=== PATIENT | male | born 2000 | race Hispanic/Latino ===

== ENCOUNTER 2022-04-23 00:40 | Inpatient (IN) | payer SELFPAY ==
[2022-04-23] MEDS ORDERED: Ondansetron ODT 4 MG TAB ONE (02:09)
[2022-04-23] MEDS ORDERED: Ondansetron PF 4 MG/2 ML Vial ONE (02:37)
[2022-04-23 02:59] LABS: #Lymphocytes 2.1 thou/uL (1.20-3.40); #Monocytes 0.9 thou/uL (0.11-0.59); #Neutrophils 7.4 thou/uL (1.40-6.50); %Basophils 0.3 % (0.0-1.0); %Eosinophils 0.1 % (0.0-10.0); %Monocytes 8.5 % (0.0-10.0); %Neutrophils 71.1 % (42.0-75.0); Hemoglobin 18.8 g/dL (14.0-18.0); Mean Corpuscular HGB CONC 35.5 g/dL (32.0-36.0); Mean Corpuscular Hemoglobin 30.9 pg (27.0-31.0); Mean Corpuscular Volume 86.9 fL (78.0-98.0); Mean Platelet Volume 13.8 fL (7.4-10.4); Platelet Count 222 thou/uL (130-400); Red Blood Cell (RBC) Count 6.09 mill/uL (4.70-6.10); White Blood Cell (WBC) Count 10.4 thou/uL (4.8-10.8)
[2022-04-23 03:21] LABS: Large Platelets MODERATE; MDiff Complete? YES; Platelet Morphology Comment Appears Adequate; RBC Morphology Normal
[2022-04-23 03:29] LABS: ALT (SGPT) 160 U/L (8-55)
[2022-04-23 03:38] LABS: Lipase 1936 U/L (8-78)
[2022-04-23] MEDS ORDERED: Haloperidol Lactate 5 MG/ML VIAL ONE (03:51)
[2022-04-23 04:22] LABS: Analyzer IN Cardio ER; Base Excess -9.8 mEq/L (-2.0 to +3.0); Calcium, Ionized (venous) 0.85 mmol/L (1.16-1.32); Chloride (VBG) 97 mmol/L (98-106); Hemoglobin (Hb) 18.7 g/dL (13.2-17.3); Sodium 130.5 mmol/L (133-146); pH (venous) 7.36 (7.32-7.43)
[2022-04-23 04:23] LABS: AST (SGOT) 95 U/L (5-34)
[2022-04-23 04:26] LABS: Actual Bicarbonate (HCO3v) 14 mEq/L (22-28)
[2022-04-23 04:36] LABS: Albumin 4.3 g/dL (3.5-5.0); Alkaline Phosphatase 85 U/L (40-110); BUN (Urea Nitrogen) 16 mg/dL (8.9-20.6); Bilirubin, Total 0.8 mg/dL (0.2-1.2); Calc. Creatinine Clearance 0 mL/min (70-130); Calcium 7.6 mg/dL (7.8-10.44); Estimated GFR 38; Globulin 7.1 g/dL (2.4-3.5); Protein, Total 11.4 g/dL (6.0-8.3)
[2022-04-23 04:39] LABS: Potassium 5.4 mmol/L (3.5-5.1); Sodium 124 mmol/L (136-145)
[2022-04-23 04:40] LABS: Carbon Dioxide 15 mmol/L (22-29)
[2022-04-23 04:41] LABS: Chloride 91 mmol/L (98-107)
[2022-04-23 04:45] LABS: Glucose 635 mg/dL (70-105)
[2022-04-23 04:54] LABS: Triglycerides 1691 mg/dL (Less than 150)
[2022-04-23 04:59] LABS: Anion Gap 23 mmol/L (10-20)
[2022-04-23] MEDS ORDERED: INSULIN REGULAR IN 0.9 % NACL 100 UNIT/100 ML BAG ONE (05:02)
[2022-04-23] MEDS ORDERED: Sodium Chloride 0.9% 1,000 ML IV PRN ×4 (05:36)
[2022-04-23] MEDS ORDERED: Electrolyte Replacement Protocol 1 EACH IVPB SCH (05:36)
[2022-04-23] MEDS ORDERED: NS 0.9% w/ 20 MEQ KCL 1,000 ML IV PRN ×2 (05:36)
[2022-04-23] MEDS ORDERED: Dextrose 5 %-0.45 % NaCl 1,000 ML IV PRN (05:36)
[2022-04-23] MEDS ORDERED: Acetaminophen 650 MG Suppository PR PRN (05:36)
[2022-04-23] MEDS ORDERED: Ondansetron PF 4 MG/2 ML Vial IVP PRN (05:36)
[2022-04-23] MEDS ORDERED: Ondansetron ODT 4 MG TAB PO PRN (05:36)
[2022-04-23 06:29] LABS: Hemoglobin A1c 10.5 % (4.0-6.0)
[2022-04-23] MEDS ORDERED: Morphine 4 MG/ML VIAL SLOW IVP PRN (06:37)
[2022-04-23 06:47] LABS: Magnesium 1.5 mg/dL (1.6-2.6); Phosphorus 2.7 mg/dL (2.3-4.7)
[2022-04-23 07:19] LABS: Anion Gap 21 mmol/L (10-20); BUN (Urea Nitrogen) 16 mg/dL (8.9-20.6); Calc. Creatinine Clearance 0 mL/min (70-130); Carbon Dioxide 14 mmol/L (22-29); Chloride 100 mmol/L (98-107); Estimated GFR 65; Glucose 464 mg/dL (70-105); Potassium 5.3 mmol/L (3.5-5.1); Sodium 130 mmol/L (136-145)
[2022-04-23] MEDS ORDERED: Magnesium 2 GM/50 ML(in water) 2 GM in Premix Bag 1 BAG IVPB SCH (08:00)
[2022-04-23 08:49] LABS: SARS-CoV-2 NAA Rapid Test Not Detected (NotDetected)
[2022-04-23 08:53] LABS: Bacteria/HPF None Seen HPF (None Seen); Bilirubin Negative (Negative); Blood, Urine 1+ (Negative); Clarity Clear (Clear); Glucose, Urine (Dipstick) Greater than 1000 mg/dL (Negative); Ketone, Urine 20 mg/dL (Negative); Leukocyte Negative Leu/uL (Negative); Nitrite Negative (Negative); Protein, Urine (Dipstick) 20 mg/dL (Neg-Trace); RBC/HPF None Seen HPF (0-3); Specific Gravity, Urine 1.034 (1.002-1.036); Squamous Epithelial None Seen HPF (0-3); Urobilinogen Normal mg/dL (Less than 2); WBC/HPF None Seen HPF (0-3); pH, Urine 5.5 (5.0-9.0)
[2022-04-23 09:18] LABS: Hemoglobin 17.3 g/dL (14.0-18.0); Mean Corpuscular HGB CONC 35.2 g/dL (32.0-36.0); Mean Corpuscular Hemoglobin 30.4 pg (27.0-31.0); Mean Corpuscular Volume 86.6 fL (78.0-98.0); Mean Platelet Volume 12.7 fL (7.4-10.4); Platelet Count 150 thou/uL (130-400); RBC Distribution Width 12.7 % (11.5-14.5); Red Blood Cell (RBC) Count 5.67 mill/uL (4.70-6.10); White Blood Cell (WBC) Count 7.3 thou/uL (4.8-10.8)
[2022-04-23] MEDS ORDERED: Magnesium 2 GM/50 ML BAG (IN WATER) ONE (09:18)
[2022-04-23 09:34] LABS: Band 45 % (5-11); Lymphocytes 15 % (21-51); MDiff Complete? YES; Metamyelocyte 2 % (0-0); Monocytes 5 % (0-10); Neutrophil 32 % (42-75); Platelet Morphology Comment Appears Adequate; Polychromasia SLIGHT = 2-3 cells (100X) (0-2/hpf); Reactive Lymphocytes 1 % (0-10); Vacuoles SLIGHT
[2022-04-23 10:00] LABS: Anion Gap 27 mmol/L (10-20); BUN (Urea Nitrogen) 15 mg/dL (8.9-20.6); Calc. Creatinine Clearance 0 mL/min (70-130); Carbon Dioxide 8 mmol/L (22-29); Chloride 105 mmol/L (98-107); Potassium 5.2 mmol/L (3.5-5.1); Sodium 135 mmol/L (136-145)
[2022-04-23 10:01] LABS: ALT (SGPT) 133 U/L (8-55); AST (SGOT) 65 U/L (5-34); Albumin 3.7 g/dL (3.5-5.0); Alkaline Phosphatase 64 U/L (40-110); Bilirubin, Total 0.7 mg/dL (0.2-1.2); Estimated GFR 72; Globulin 4.8 g/dL (2.4-3.5); Glucose 402 mg/dL (70-105); Protein, Total 8.5 g/dL (6.0-8.3)
[2022-04-23 12:43] LABS: Glucose 344 mg/dL (70-105)
[2022-04-23 14:36] LABS: Anion Gap 25 mmol/L (10-20); BUN (Urea Nitrogen) 15 mg/dL (8.9-20.6); Calc. Creatinine Clearance 0 mL/min (70-130); Calcium 7.1 mg/dL (7.8-10.44); Carbon Dioxide 8 mmol/L (22-29); Chloride 104 mmol/L (98-107); Estimated GFR 87; Glucose 354 mg/dL (70-105); Potassium 4.7 mmol/L (3.5-5.1); Sodium 132 mmol/L (136-145)
[2022-04-23] MEDS ORDERED: Sodium Bicarbonate 50 MEQ in Sodium Chloride 0.45% 1,000 ML IV SCH (15:45)
[2022-04-23] MEDS ORDERED: NIFEdipine XL 60 MG TAB PO SCH (16:15)
[2022-04-23 16:44] LABS: Glucose 314 mg/dL (70-105)
[2022-04-23 17:27] VITALS: BMI 34.9
[2022-04-23 17:27] LABS: Magnesium 2.1 mg/dL (1.6-2.6); Phosphorus 1.1 mg/dL (2.3-4.7)
[2022-04-23 17:46] LABS: Glucose 286 mg/dL (70-105)
[2022-04-23] MEDS: PHOS-NAK 1 PKT PACK PO SCH ×2 (18:37→23:07)
[2022-04-23] MEDS: HUMULIN R 100 UNITS in Sodium Chloride 0.9% 100 ML IVPB SCH (18:38)
[2022-04-23] MEDS: NIFEdipine XL 60 MG TAB PO SCH (20:10)
[2022-04-23] MEDS: D5 1/2 NS w/20 mEq KCL 1,000 ML IV PRN (20:10)
[2022-04-23] MEDS: Insulin Glargine 30 UNITS/0.3 ML VIAL SC SCH (20:10)
[2022-04-23] MEDS ORDERED: Atorvastatin Calcium 40 MG TAB PO SCH (21:00)
[2022-04-24] MEDS: D5 1/2 NS w/20 mEq KCL 1,000 ML IV PRN ×3 (00:07→08:20)
[2022-04-24] MEDS ORDERED: Metoprolol Tartrate 5 MG/5 ML VIAL IVP SCH ×2 (01:00→02:00)
[2022-04-24] MEDS: PHOS-NAK 1 PKT PACK PO SCH ×2 (01:13→06:08)
[2022-04-24 01:44] LABS: Anion Gap 15 mmol/L (10-20); BUN (Urea Nitrogen) 14 mg/dL (8.9-20.6); Calc. Creatinine Clearance 225 mL/min (70-130); Calcium 7.3 mg/dL (7.8-10.44); Carbon Dioxide 19 mmol/L (22-29); Chloride 102 mmol/L (98-107); Estimated GFR 126; Glucose 172 mg/dL (70-105); Sodium 132 mmol/L (136-145)
[2022-04-24] MEDS: HUMULIN R 100 UNITS in Sodium Chloride 0.9% 100 ML IVPB SCH (02:03)
[2022-04-24 03:52] LABS: #Lymphocytes 1.9 thou/uL (1.20-3.40); #Monocytes 0.6 thou/uL (0.11-0.59); #Neutrophils 5.1 thou/uL (1.40-6.50); %Basophils 0.3 % (0.0-1.0); %Eosinophils 0.2 % (0.0-10.0); %Lymphocytes 24.8 % (21.0-51.0); %Monocytes 7.7 % (0.0-10.0); %Neutrophils 66.9 % (42.0-75.0); Hemoglobin 13.7 g/dL (14.0-18.0); Mean Corpuscular HGB CONC 34.6 g/dL (32.0-36.0); Mean Corpuscular Hemoglobin 30.9 pg (27.0-31.0); Mean Corpuscular Volume 89.1 fL (78.0-98.0); Mean Platelet Volume 12.5 fL (7.4-10.4); Platelet Count 107 thou/uL (130-400); RBC Distribution Width 12.5 % (11.5-14.5); Red Blood Cell (RBC) Count 4.45 mill/uL (4.70-6.10); White Blood Cell (WBC) Count 7.6 thou/uL (4.8-10.8)
[2022-04-24 04:20] LABS: Anion Gap 12 mmol/L (10-20); BUN (Urea Nitrogen) 13 mg/dL (8.9-20.6); Calc. Creatinine Clearance 193 mL/min (70-130); Calcium 6.8 mg/dL (7.8-10.44); Carbon Dioxide 23 mmol/L (22-29); Chloride 100 mmol/L (98-107); Estimated GFR 110; Glucose 280 mg/dL (70-105); Potassium 4.4 mmol/L (3.5-5.1); Sodium 131 mmol/L (136-145)
[2022-04-24 06:44] LABS: Anion Gap 13 mmol/L (10-20); BUN (Urea Nitrogen) 11 mg/dL (8.9-20.6); Calc. Creatinine Clearance 270 mL/min (70-130); Calcium 7.3 mg/dL (7.8-10.44); Carbon Dioxide 20 mmol/L (22-29); Chloride 101 mmol/L (98-107); Estimated GFR 133; Glucose 230 mg/dL (70-105); Potassium 3.6 mmol/L (3.5-5.1); Sodium 130 mmol/L (136-145)
[2022-04-24 06:45] LABS: Albumin 2.5 g/dL (3.5-5.0)
[2022-04-24 06:48] LABS: Globulin 2.4 g/dL (2.4-3.5); Triglycerides 349 mg/dL (Less than 150)
[2022-04-24 06:49] LABS: Anion Gap 13 mmol/L (10-20); Carbon Dioxide 16 mmol/L (22-29)
[2022-04-24 06:50] LABS: Alkaline Phosphatase 40 U/L (40-110)
[2022-04-24 06:51] LABS: Calc. Creatinine Clearance 192 mL/min (70-130); Estimated GFR 109
[2022-04-24 06:52] LABS: BUN (Urea Nitrogen) 11 mg/dL (8.9-20.6)
[2022-04-24 06:53] LABS: ALT (SGPT) 81 U/L (8-55); AST (SGOT) 56 U/L (5-34)
[2022-04-24 07:03] LABS: Calcium 7.3 mg/dL (7.8-10.44); Chloride 101 mmol/L (98-107); Glucose 230 mg/dL (70-105); Potassium 3.6 mmol/L (3.5-5.1); Sodium 130 mmol/L (136-145)
[2022-04-24 07:04] LABS: Bilirubin, Total 2.1 mg/dL (0.2-1.2); Protein, Total 4.9 g/dL (6.0-8.3)
[2022-04-24 07:36] LABS: Triglycerides 978 mg/dL (Less than 150)
[2022-04-24] MEDS: Insulin Glargine 30 UNITS/0.3 ML VIAL SC SCH ×2 (08:19→20:08)
[2022-04-24] MEDS: NIFEdipine XL 60 MG TAB PO SCH ×2 (08:19→20:08)
[2022-04-24 10:11] LABS: Free T4 (Free Thyroxine) 0.99 ng/dL (0.70-1.48); Thyroid Stimulating Hormone 0.7311 uIU/mL (0.35-4.94)
[2022-04-24] MEDS ORDERED: Metoprolol Tartrate 50 MG TAB PO SCH (10:45)
[2022-04-24 13:35] LABS: Anion Gap 15 mmol/L (10-20); BUN (Urea Nitrogen) 10 mg/dL (8.9-20.6); Calc. Creatinine Clearance 274 mL/min (70-130); Calcium 7.7 mg/dL (7.8-10.44); Carbon Dioxide 17 mmol/L (22-29); Chloride 103 mmol/L (98-107); Estimated GFR 134; Glucose 187 mg/dL (70-105); Potassium 3.9 mmol/L (3.5-5.1); Sodium 131 mmol/L (136-145)
[2022-04-24] MEDS ORDERED: Dextrose 5% in Water 1,000 ML IV PRN (19:30)
[2022-04-24] MEDS ORDERED: Dextrose 50% Abboject 50 ML SYRINGE IVP PRN (19:30)
[2022-04-24] MEDS: HumaLOG 300 UNITS/3 ML VIAL SC PRN (20:06)
[2022-04-24] MEDS: Heparin 5,000 UNITS/ML VIAL SC SCH (20:08)
[2022-04-24] MEDS: Metoprolol Tartrate 50 MG TAB PO SCH (20:08)
[2022-04-25 04:04] LABS: Anion Gap 16 mmol/L (10-20); BUN (Urea Nitrogen) 13 mg/dL (8.9-20.6); Calc. Creatinine Clearance 256 mL/min (70-130); Calcium 8.4 mg/dL (7.8-10.44); Carbon Dioxide 19 mmol/L (22-29); Chloride 100 mmol/L (98-107); Estimated GFR 131; Glucose 211 mg/dL (70-105); Potassium 3.9 mmol/L (3.5-5.1); Sodium 131 mmol/L (136-145)
[2022-04-25 04:08] LABS: #Lymphocytes 1.5 thou/uL (1.20-3.40); #Monocytes 0.6 thou/uL (0.11-0.59); #Neutrophils 5.5 thou/uL (1.40-6.50); %Basophils 0.1 % (0.0-1.0); %Eosinophils 0.4 % (0.0-10.0); %Lymphocytes 19.5 % (21.0-51.0); %Neutrophils 71.9 % (42.0-75.0); Hemoglobin 12.2 g/dL (14.0-18.0); Mean Corpuscular HGB CONC 34.6 g/dL (32.0-36.0); Mean Corpuscular Hemoglobin 31.2 pg (27.0-31.0); Mean Corpuscular Volume 90.4 fL (78.0-98.0); Mean Platelet Volume 12.5 fL (7.4-10.4); Platelet Count 96 thou/uL (130-400); Platelet Morphology Comment Appears Decreased; RBC Distribution Width 12.4 % (11.5-14.5); RBC Morphology Normal; Red Blood Cell (RBC) Count 3.92 mill/uL (4.70-6.10); White Blood Cell (WBC) Count 7.7 thou/uL (4.8-10.8)
[2022-04-25] MEDS: HumaLOG 300 UNITS/3 ML VIAL SC PRN ×4 (06:11→20:13)
[2022-04-25] MEDS: NIFEdipine XL 60 MG TAB PO SCH ×2 (09:26→20:13)
[2022-04-25] MEDS: Metoprolol Tartrate 50 MG TAB PO SCH (09:26)
[2022-04-25] MEDS: Insulin Glargine 30 UNITS/0.3 ML VIAL SC SCH ×2 (09:26→20:13)
[2022-04-25] MEDS: Heparin 5,000 UNITS/ML VIAL SC SCH ×2 (09:27→21:41)
[2022-04-25] MEDS ORDERED: Metoprolol Tartrate 50 MG TAB PO SCH (10:45)
[2022-04-25] MEDS ORDERED: GUAIFENESIN SF SOLN 200 MG/10 ML UDCUP PO PRN (16:48)
[2022-04-25] MEDS: Acetaminophen 325 MG TAB PO PRN ×2 (19:17→23:44)
[2022-04-25] MEDS: Benzonatate 100 MG CAP PO SCH (20:13)
[2022-04-25] MEDS: Metoprolol Tartrate 100 MG TAB PO SCH (20:13)
[2022-04-26 03:57] LABS: #Basophils 0.1 thou/uL (0.0-0.2); #Eosinphils 0.1 thou/uL (0.0-0.7); #Monocytes 1.5 thou/uL (0.11-0.59); #Neutrophils 7.9 thou/uL (1.40-6.50); %Basophils 0.4 % (0.0-1.0); %Eosinophils 0.6 % (0.0-10.0); %Lymphocytes 17.7 % (21.0-51.0); %Monocytes 12.6 % (0.0-10.0); %Neutrophils 68.7 % (42.0-75.0); Hemoglobin 11.3 g/dL (14.0-18.0); Mean Corpuscular HGB CONC 33.6 g/dL (32.0-36.0); Mean Corpuscular Hemoglobin 29.7 pg (27.0-31.0); Mean Corpuscular Volume 88.4 fL (78.0-98.0); Mean Platelet Volume 11.1 fL (7.4-10.4); Platelet Count 144 thou/uL (130-400); RBC Distribution Width 12.1 % (11.5-14.5); White Blood Cell (WBC) Count 11.5 thou/uL (4.8-10.8)
[2022-04-26 04:18] LABS: Anion Gap 13 mmol/L (10-20); BUN (Urea Nitrogen) 16 mg/dL (8.9-20.6); Calc. Creatinine Clearance 239 mL/min (70-130); Calcium 8.6 mg/dL (7.8-10.44); Carbon Dioxide 24 mmol/L (22-29); Chloride 95 mmol/L (98-107); Estimated GFR 128; Glucose 238 mg/dL (70-105); Potassium 3.2 mmol/L (3.5-5.1); Sodium 129 mmol/L (136-145)
[2022-04-26] MEDS: HumaLOG 300 UNITS/3 ML VIAL SC PRN ×4 (05:34→21:26)
[2022-04-26] MEDS: NIFEdipine XL 60 MG TAB PO SCH ×2 (07:46→21:25)
[2022-04-26] MEDS: Benzonatate 100 MG CAP PO SCH ×3 (07:46→21:25)
[2022-04-26] MEDS: Metoprolol Tartrate 100 MG TAB PO SCH ×2 (07:46→21:25)
[2022-04-26] MEDS: Insulin Glargine 30 UNITS/0.3 ML VIAL SC SCH ×2 (07:47→21:26)
[2022-04-26] MEDS: Heparin 5,000 UNITS/ML VIAL SC SCH ×2 (07:47→21:26)
[2022-04-26] MEDS ORDERED: Potassium Chloride 20 MEQ TAB PO SCH (08:00)
[2022-04-27 03:38] LABS: #Basophils 0.1 thou/uL (0.0-0.2); #Eosinphils 0.1 thou/uL (0.0-0.7); #Lymphocytes 2.2 thou/uL (1.20-3.40); #Monocytes 1.5 thou/uL (0.11-0.59); #Neutrophils 6.8 thou/uL (1.40-6.50); %Basophils 0.5 % (0.0-1.0); %Eosinophils 1.2 % (0.0-10.0); %Lymphocytes 20.3 % (21.0-51.0); %Monocytes 14.4 % (0.0-10.0); %Neutrophils 63.5 % (42.0-75.0); Hemoglobin 10.9 g/dL (14.0-18.0); Mean Corpuscular HGB CONC 34.4 g/dL (32.0-36.0); Mean Corpuscular Hemoglobin 30.3 pg (27.0-31.0); Mean Corpuscular Volume 87.9 fL (78.0-98.0); Mean Platelet Volume 10.7 fL (7.4-10.4); Platelet Count 151 thou/uL (130-400); RBC Distribution Width 12.2 % (11.5-14.5); Red Blood Cell (RBC) Count 3.61 mill/uL (4.70-6.10); White Blood Cell (WBC) Count 10.6 thou/uL (4.8-10.8)
[2022-04-27 03:54] LABS: Anion Gap 16 mmol/L (10-20); BUN (Urea Nitrogen) 10 mg/dL (8.9-20.6); Calc. Creatinine Clearance 272 mL/min (70-130); Calcium 8.3 mg/dL (7.8-10.44); Carbon Dioxide 23 mmol/L (22-29); Chloride 96 mmol/L (98-107); Estimated GFR 134; Glucose 161 mg/dL (70-105); Sodium 132 mmol/L (136-145)
[2022-04-27] MEDS: Insulin Glargine 30 UNITS/0.3 ML VIAL SC SCH ×2 (07:47→20:13)
[2022-04-27] MEDS: Metoprolol Tartrate 100 MG TAB PO SCH ×2 (07:48→20:13)
[2022-04-27] MEDS: Heparin 5,000 UNITS/ML VIAL SC SCH ×2 (07:48→20:13)
[2022-04-27] MEDS: NIFEdipine XL 60 MG TAB PO SCH ×2 (07:48→20:12)
[2022-04-27] MEDS: Benzonatate 100 MG CAP PO SCH ×3 (07:51→20:13)
[2022-04-27] MEDS ORDERED: Potassium Chloride 20 MEQ TAB PO SCH ×2 (08:00→12:00)
[2022-04-27] MEDS ORDERED: Iopamidol-370 76% 500 ML 1 ML ONE (15:47)
[2022-04-28 04:05] LABS: ALT (SGPT) 39 U/L (8-55); AST (SGOT) 30 U/L (5-34); Albumin 3.1 g/dL (3.5-5.0); Alkaline Phosphatase 59 U/L (40-110); Anion Gap 15 mmol/L (10-20); BUN (Urea Nitrogen) 7 mg/dL (8.9-20.6); Bilirubin, Total 0.8 mg/dL (0.2-1.2); Calc. Creatinine Clearance 244 mL/min (70-130); Calcium 8.7 mg/dL (7.8-10.44); Carbon Dioxide 23 mmol/L (22-29); Chloride 98 mmol/L (98-107); Estimated GFR 129; Globulin 3.3 g/dL (2.4-3.5); Glucose 138 mg/dL (70-105); Iron 23 ug/dL (65-175); Iron Binding Capacity, Total 214 mcg/dL (261-462); Potassium 3.1 mmol/L (3.5-5.1); Protein, Total 6.4 g/dL (6.0-8.3); Sodium 133 mmol/L (136-145)
[2022-04-28 04:06] LABS: Anion Gap 17 mmol/L (10-20); BUN (Urea Nitrogen) 8 mg/dL (8.9-20.6); Calc. Creatinine Clearance 247 mL/min (70-130); Calcium 8.7 mg/dL (7.8-10.44); Carbon Dioxide 22 mmol/L (22-29); Chloride 98 mmol/L (98-107); Estimated GFR 130; Glucose 135 mg/dL (70-105); Iron 25 ug/dL (65-175); Iron Binding Capacity, Total 210 mcg/dL (261-462); Potassium 3.2 mmol/L (3.5-5.1); Sodium 134 mmol/L (136-145)
[2022-04-28 04:07] LABS: #Eosinphils 0.1 thou/uL (0.0-0.7); #Monocytes 1.3 thou/uL (0.11-0.59); #Neutrophils 7.5 thou/uL (1.40-6.50); %Basophils 0.3 % (0.0-1.0); %Eosinophils 1.2 % (0.0-10.0); %Lymphocytes 17.9 % (21.0-51.0); %Monocytes 12.1 % (0.0-10.0); %Neutrophils 68.6 % (42.0-75.0); Hemoglobin 11.4 g/dL (14.0-18.0); Mean Corpuscular HGB CONC 34.6 g/dL (32.0-36.0); Mean Corpuscular Volume 86.5 fL (78.0-98.0); Mean Platelet Volume 10.1 fL (7.4-10.4); Platelet Count 167 thou/uL (130-400); RBC Distribution Width 12.3 % (11.5-14.5); Red Blood Cell (RBC) Count 3.79 mill/uL (4.70-6.10)
[2022-04-28] MEDS ORDERED: Potassium Chloride 20 MEQ TAB PO SCH ×2 (05:00→10:30)
[2022-04-28] MEDS: Metoprolol Tartrate 100 MG TAB PO SCH (09:37)
[2022-04-28] MEDS: NIFEdipine XL 60 MG TAB PO SCH ×2 (09:37→21:14)
[2022-04-28] MEDS: Benzonatate 100 MG CAP PO SCH ×3 (09:38→21:16)
[2022-04-28] MEDS: Heparin 5,000 UNITS/ML VIAL SC SCH ×2 (09:38→21:16)
[2022-04-28] MEDS: Insulin Glargine 30 UNITS/0.3 ML VIAL SC SCH ×2 (09:38→21:15)
[2022-04-28] MEDS ORDERED: Magnesium 2 GM/50 ML(in water) 2 GM in Premix Bag 1 BAG IVPB SCH (10:30)
[2022-04-28] MEDS ORDERED: Metoprolol Tartrate 100 MG TAB PO SCH (18:15)
[2022-04-28 21:17] VITALS: BP 122/76
[2022-04-29 04:51] LABS: ALT (SGPT) 39 U/L (8-55); AST (SGOT) 33 U/L (5-34); Albumin 3.1 g/dL (3.5-5.0); Alkaline Phosphatase 65 U/L (40-110); Anion Gap 14 mmol/L (10-20); BUN (Urea Nitrogen) 7 mg/dL (8.9-20.6); Bilirubin, Total 0.6 mg/dL (0.2-1.2); Calc. Creatinine Clearance 243 mL/min (70-130); Calcium 8.7 mg/dL (7.8-10.44); Carbon Dioxide 24 mmol/L (22-29); Chloride 98 mmol/L (98-107); Estimated GFR 130; Globulin 3.4 g/dL (2.4-3.5); Glucose 112 mg/dL (70-105); Lipase 60 U/L (8-78); Magnesium 2.1 mg/dL (1.6-2.6); Phosphorus 4.1 mg/dL (2.3-4.7); Potassium 3.4 mmol/L (3.5-5.1); Protein, Total 6.5 g/dL (6.0-8.3); Sodium 133 mmol/L (136-145)
[2022-04-29 07:52] VITALS: TEMP 99
[2022-04-29] MEDS ORDERED: Potassium Chloride 20 MEQ TAB PO SCH (08:00)
[2022-04-29] MEDS: NIFEdipine XL 60 MG TAB PO SCH (08:14)
[2022-04-29] MEDS: Benzonatate 100 MG CAP PO SCH (08:15)
[2022-04-29] MEDS: Insulin Glargine 30 UNITS/0.3 ML VIAL SC SCH (08:17)
[2022-04-29] MEDS: Heparin 5,000 UNITS/ML VIAL SC SCH (08:17)
[2022-04-29] MEDS ORDERED: Metoprolol Tartrate 100 MG TAB PO SCH (09:00)
[2022-04-29 12:44] LABS: Campy jejuni + coli by PCR Negative (Negative); STEC Shiga Toxin 1+2 Negative (Negative); Salmonella spp. by PCR Negative (Negative); Shigella spp + EIEC by PCR Negative (Negative)
[2022-04-29 12:50] LABS: Cardiac Risk 11.8 (Less than 4.5)
== END 2022-04-29 12:56 | disposition home or self-care (01) | DRG 438 ==
LOC: ERS 00:40 → ERHOLD 05:11 → IMCU/EMU 17:14
PROVIDERS: ADMIT Hospitalist; ATTEND Hospitalist
DX: K85.90 Acute pancreatitis without necrosis or infection, unspecified (principal); E11.10 Type 2 diabetes mellitus with ketoacidosis without coma; N17.9 Acute kidney failure, unspecified; Z20.822 Contact with and (suspected) exposure to COVID-19; E78.1 Pure hyperglyceridemia; E86.1 Hypovolemia; I10 Essential (primary) hypertension; I08.1 Rheumatic disorders of both mitral and tricuspid valves; R74.01 Elevation of levels of liver transaminase levels; E66.9 Obesity, unspecified; E86.9 Volume depletion, unspecified; E78.5 Hyperlipidemia, unspecified; R80.9 Proteinuria, unspecified; E87.6 Hypokalemia; D64.9 Anemia, unspecified; K76.0 Fatty (change of) liver, not elsewhere classified; Z68.33 Body mass index [BMI] 33.0-33.9, adult; Z83.3 Family history of diabetes mellitus
CPT/HCPCS: 36415; 36416; 74177; 76705; 80048; 80053; 80061; 81003; 81015; 82010; 82103; 82150; 82274; 82805; 83036; 83540; 83550; 83630; 83690; 83735; 83880; 84100; 84439; 84443; 84478; 84481; 85025; 85060; 87324; 87338; 87449; 87505; 87798; 93005; 93010; 93306; 96374; 96375; J1630; J1644; J1815; J2405; J3475; J3480; J3490; Q0162; Q9967; U0002